=== PATIENT | female | born 1940 | race Two or more races ===

== ENCOUNTER 2018-04-03 21:22 | Emergency (ER) | payer MEDICAID, OTHER ==
[~2018-04-03] VITALS: Ht 152.4 cm; Wt 54.0 kg
--- NOTE | 2018-04-03 21:29 | ED.ADGEN ---
Past History Past Medical History: Anxiety, Cancer, Dementia, Depression, Hypertension, Other Past Surgical History: Cancer Surgery, Other Adult General Chief Complaint Chief Complaint (Note this is a repeat dictation of this report- computer malfunction) Nausea and vomiting one hour after eating spaghetti at 1300 hrs. [facility] HPI Patient is a 77 year old female who presents with above hx and complaints of intractable nausea and vomiting after eating spaghetti this afternoon. Other family members did not get sick. Patient did have a bowel movement yesterday. She is here in [place] currently visiting her daughter. She is from [place]. Patient has had multiple abdomen surgeries and chemotherapy for colon cancer completed proximally 7 years ago. No hx trauma, specific ill contracts. Recent travel to [place]. Patient localizes her pain in epigastric and right upper quadrant. No previous history of gallbladder disease. Review of Systems Review of Systems Constitutional: Denies fever or chills [] Eyes: Denies change in visual acuity, redness, or eye pain [] HENT: Denies nasal congestion or sore throat [] Respiratory: Denies cough or shortness of breath [] Cardiovascular: No additional information not addressed in HPI [] GI: Complaints of right upper quadrant and epigastric abdominal pain, nausea, vomiting, . Denies bloody stools or diarrhea [] : Denies dysuria or hematuria [] Musculoskeletal: Denies back pain or joint pain [] Integument: Denies rash or skin lesions [] Neurologic: Denies headache, focal weakness or sensory changes [] Endocrine: Denies polyuria or polydipsia [] All other systems were reviewed and found to be within normal limits, except as documented in this note. Family History Family History Noncontributory Current Medications Current Medications Current Medications Medications (Trade) Dose Ordered Sig/Saurabh Start Time Stop Time Status Last Admin Dose Admin Clonidine HCl (Catapres Tts-1) 1 patch WEEKLY 04/03/18 23:30 04/04/18 03:13 DC Clonidine HCl (Catapres) 0.1 mg 1X ONCE 04/03/18 23:30 04/03/18 23:31 DC 04/03/18 23:22 0.1 MG Diphenhydramine HCl (Benadryl) 25 mg 1X ONCE 04/03/18 22:30 04/03/18 22:31 DC 04/04/18 02:52 25 MG Famotidine (Pepcid Vial) 20 mg 1X ONCE 04/03/18 22:00 04/03/18 22:01 DC 04/03/18 22:19 20 MG Info (Do NOT chart on this entry -- for MONITORING) 1 each PRN DAILY PRN 04/03/18 23:15 04/04/18 03:13 DC Iohexol (Omnipaque 240 Mg/ml) 50 ml 1X ONCE 04/03/18 23:30 04/03/18 23:31 DC 04/04/18 00:23 50 ML Iohexol (Omnipaque 300 Mg/ml) 75 ml 1X ONCE 04/03/18 23:30 04/03/18 23:31 DC 04/04/18 00:22 75 ML Lactated Ringer's 1,000 ml @ 1,000 mls/hr 1X ONCE 04/04/18 00:30 04/04/18 01:29 DC 04/04/18 01:30 1,000 MLS/HR Levofloxacin/ Dextrose 100 ml @ 100 mls/hr 1X ONCE 04/04/18 01:45 04/04/18 02:44 DC 04/04/18 01:38 100 MLS/HR Lorazepam (Ativan) 1 mg 1X ONCE 04/03/18 22:30 04/03/18 22:31 DC 04/03/18 22:20 1 MG Morphine Sulfate (Morphine 10mg Syringe) 5 mg 1X ONCE 04/03/18 22:00 04/03/18 22:01 DC Ondansetron HCl (Zofran) 8 mg 1X ONCE 04/03/18 22:30 04/03/18 22:31 DC 04/03/18 23:20 8 MG See nursing for home meds. Allergies Allergies Allergies Coded Allergies Type Severity Reaction Last Updated Verified Penicillins Allergy Unknown Unknown 04/03/18 Yes ibuprofen Adverse Reaction Unknown Unknown 04/03/18 Yes Physical Exam Physical Exam Constitutional: in acute distress, ill in appearance. [] HENT: Normocephalic, atraumatic, bilateral external ears normal, oropharynx dry , no oral exudates, nose normal. [] Eyes: PERRLA, EOMI, conjunctiva normal, no discharge. [] Neck: Normal range of motion, no tenderness, supple, no stridor. [] Cardiovascular: Tachycardia Heart rate regular rhythm, no murmur [] Lungs & Thorax: Bilateral breath sounds clear to auscultation [] Abdomen: Bowel sounds decreased, soft, epigastric and Rt. upper quadrant tenderness, no masses, no pulsatile masses. Rebounds to Rt upper quadrant. Skin: Warm, diaphoretic, no erythema, no rash. [] Back: No tenderness, no CVA tenderness. [] Extremities: No tenderness, no cyanosis, no clubbing, ROM intact, no edema. [] No psoas sign. Neurologic: Alert and oriented X 3, No gross motor or sensory defects, no focal deficits noted. []Tremor Psychologic: Affect very anxious judgement normal, mood normal. [] Current Patient Data Vital Signs Vital Signs Date Time Temp Pulse Resp B/P (MAP) Pulse Ox O2 Delivery O2 Flow Rate FiO2 04/04/18 01:25 106 20 149/75 (99) 98 Room Air 04/03/18 22:54 98.5 Lab Results Laboratory Tests Test 04/03/18 01:29 04/03/18 22:47 Urine Collection Type Void Urine Color Yellow Urine Clarity Hazy Urine pH 8.5 Urine Specific [place] 1.015 Urine Protein 30 mg/dl (NEG-TRACE) Urine Glucose (UA) Neg mg/dL (NEG) Urine Ketones (Stick) Neg mg/dL (NEG) Urine Blood Small (NEG) Urine Nitrite Neg (NEG) Urine Bilirubin Neg (NEG) Urine Urobilinogen Dipstick 0.2 mg/dL (0.2 mg/dL) Urine Leukocyte Esterase Neg (NEG) Urine RBC 6-10 /HPF (0-2) Urine WBC 1-4 /HPF (0-4) Urine Squamous Epithelial Cells Occ /LPF Urine Bacteria Few /HPF (0-FEW) Urine Opiates Screen Neg (NEG) Urine Methadone Screen Neg (NEG) Urine Barbiturates Neg (NEG) Urine Phencyclidine Screen Neg (NEG) Urine Amphetamine/Methamphetamine Neg (NEG) Urine Benzodiazepines Screen Neg (NEG) Urine Cocaine Screen Neg (NEG) Urine Cannabinoids Screen Neg (NEG) Urine Ethyl Alcohol Neg (NEG) White Blood Count 8.3 x10^3/uL (4.0-11.0) Red Blood Count 4.35 x10^6/uL (3.50-5.40) Hemoglobin 14.0 g/dL (12.0-15.5) Hematocrit 41.2 % (36.0-47.0) Mean Corpuscular Volume 95 fL (79-100) Mean Corpuscular Hemoglobin 32 pg (25-35) Mean Corpuscular Hemoglobin Concent 34 g/dL (31-37) Red Cell Distribution Width 12.9 % (11.5-14.5) Platelet Count 334 x10^3/uL (140-400) Neutrophils (%) (Auto) 89 % (31-73) H Lymphocytes (%) (Auto) 8 % (24-48) L Monocytes (%) (Auto) 3 % (0-9) Eosinophils (%) (Auto) 0 % (0-3) Basophils (%) (Auto) 0 % (0-3) Neutrophils # (Auto) 7.4 x10^3uL (1.8-7.7) Lymphocytes # (Auto) 0.7 x10^3/uL (1.0-4.8) L Monocytes # (Auto) 0.2 x10^3/uL (0.0-1.1) Eosinophils # (Auto) 0.0 x10^3/uL (0.0-0.7) Basophils # (Auto) 0.0 x10^3/uL (0.0-0.2) Prothrombin Time 10.5 SEC (9.4-11.4) Prothrombin Time INR 1.0 (0.9-1.1) PTT 24 SEC (23-33) Sodium Level 134 mmol/L (136-145) L Potassium Level 3.9 mmol/L (3.5-5.1) Chloride Level 98 mmol/L (98-107) Carbon Dioxide Level 29 mmol/L (21-32) Anion Gap 7 (6-14) Blood Urea Nitrogen 25 mg/dL (7-20) H Creatinine 1.2 mg/dL (0.6-1.0) H Estimated GFR (Cockcroft-Gault) 43.4 Glucose Level 142 mg/dL (70-99) H Calcium Level 9.6 mg/dL (8.5-10.1) Total Bilirubin 0.3 mg/dL (0.2-1.0) Direct Bilirubin 0.1 mg/dL (0.0-0.2) Aspartate Amino Transferase (AST) 25 U/L (15-37) Alanine Aminotransferase (ALT) 23 U/L (14-59) Alkaline Phosphatase 71 U/L (46-116) Creatine Kinase 82 U/L (26-192) Creatine Kinase MB (Mass) 0.8 ng/mL (0.0-3.6) Creatine Kinase MB Relative Index 1.0 % (0-4) Troponin I Quantitative < 0.017 ng/mL (0-0.055) Total Protein 8.0 g/dL (6.4-8.2) Albumin 4.1 g/dL (3.4-5.0) Amylase Level 120 U/L (25-115) H Lipase 137 U/L (73-393) EKG EKG My interpretation of EKG shows a sinus rhythm at 90 bpm. This was nonspecific anterior septal changes.[] Radiology/Procedures Radiology/Procedures My interpretation of Acute Abd. pain shows Chronic lung changes. DJD , Spinal DJD and compression, Scattered isolated loops, possible early ileus. []CT of abdomen shows mild dilation of pancreatic duct as well as bile duct.- Shows previous surgery from colon section removal. No free air. - Suspect common duct obstruction. See formal report when available. Course & Med Decision Making Course & Med Decision Making Pertinent Labs and Imaging studies reviewed. (See chart for details) Plan transfer to [facility]- for GI consult- possible common duct obstruction. Accepting Dr. Ferris [] Final Impression Final Impression 1. Nausea, vomiting, abdomen pain 2. Accelerated HTN 3. Hyponatremia 134 4. Elevated Creat.and BUN 1.2/25 5. DM- 142 6. Elevated Amylase 7. Dehydration 8. Suspect obstruction of Common Duct- Dilated Bile and Pancreatic ducts 9. Hx of Colon Ca. ( Resection and Chemo Tx - 7 yrs) 10 Hx. of Dementia Dragon Disclaimer Dragon Disclaimer This electronic medical record was generated, in whole or in part, using a voice recognition dictation system. MATTY PEREZ MD Apr 03, 2018 21:29
[2018-04-03] MEDS ORDERED: IV RINGERS SOLUTION,LACTATED 1,000 ML IV SCH (22:00)
[2018-04-03] MEDS ORDERED: FAMOTIDINE 20 MG/2 ML VIAL IVP ONE (22:00)
[2018-04-03] MEDS ORDERED: MORPHINE SULFATE 10 MG/ML SYRINGE. SQ ONE (22:00)
[2018-04-03] MEDS ORDERED: ONDANSETRON PF 4 MG/2 ML VIAL. IV ONE ×2 (22:00→22:30)
--- NOTE | 2018-04-03 22:22 | EKG ---
[address] [address] Test Date: 2018-04-03 Test Time: 21:56:37 Pat Name: JORGE CHICAS Department: Room: Gender: F [employer]: MARK : 1940 Requested By: MATTY PEREZ Order Number: [id number] Reading MD: Milad Russo MD Measurements Intervals [place] Rate: 90 P: 76 VA: 186 QRS: 54 QRSD: 80 T: 46 QT: 356 QTc: 440 Interpretive Statements SINUS RHYTHM Electronically Signed On 04-05-2018 9:32:22 CDT by Milad Russo MD
[2018-04-03] MEDS ORDERED: diphenhydrAMINE 50 MG/ML VIAL IVP ONE (22:30)
[2018-04-03] MEDS ORDERED: LORazepam 2 MG/ML VIAL IV ONE (22:30)
[2018-04-03 23:09] LABS: BASO % 0 % (0-3); EOS % 0 % (0-3); HEMATOCRIT 41.2 % (36.0-47.0); LYMPH # 0.7 x10^3/uL (1.0-4.8); LYMPH % 8 % (24-48); MEAN CORPUSCULAR HEMOGLOBIN 32 pg (25-35); MEAN CORPUSCULAR HGB CONC 34 g/dL (31-37); MEAN CORPUSCULAR VOLUME 95 fL (79-100); MONO # 0.2 x10^3/uL (0.0-1.1); MONO % 3 % (0-9); NEUT # 7.4 x10^3uL (1.8-7.7); NEUT % 89 % (31-73); PLATELET COUNT 334 x10^3/uL (140-400); RED BLOOD COUNT 4.35 x10^6/uL (3.50-5.40); RED CELL DISTRIBUTION WIDTH 12.9 % (11.5-14.5); WHITE BLOOD COUNT 8.3 x10^3/uL (4.0-11.0)
[2018-04-03] MEDS ORDERED: CONTRAST GIVEN MC PRN (23:15)
--- NOTE | 2018-04-03 23:15 | RAD ---
ACUTE ABDOMEN SERIES History: Pain, nausea and vomiting Comparison: None. Findings: Single view of the chest, 2 upright views of the abdomen, single AP supine view of the abdomen are submitted. Pericardial cardiac silhouette is within normal limits. There is atherosclerotic calcification near aortic arch. There is no lobar consolidation, pleural fluid, pneumothorax. No free air is identified. There is an overall nonobstructive bowel gas pattern. There is multilevel degenerative disc disease of the lumbar spine. Impression: 1. There is an overall nonobstructive bowel gas pattern. There is no significant lung infiltrate. Electronically signed by: Greyson Elizalde MD (04/03/2018 11:12 PM) [facility]
[2018-04-03 23:30] LABS: ALBUMIN 4.1 g/dL (3.4-5.0); CALCIUM 9.6 mg/dL (8.5-10.1); CREATININE 1.2 mg/dL (0.6-1.0); DIRECT BILIRUBIN 0.1 mg/dL (0.0-0.2); GFR 43.4; POTASSIUM 3.9 mmol/L (3.5-5.1); TOTAL BILIRUBIN 0.3 mg/dL (0.2-1.0)
[2018-04-03] MEDS ORDERED: cloNIDine HCL 0.1 MG TABLET PO ONE (23:30)
[2018-04-03] MEDS ORDERED: IOHEXOL 300 MG/ML 75 ML VIAL. IV ONE (23:30)
[2018-04-03] MEDS ORDERED: cloNIDine TTS-1 1 PATCH PATCH TD SCH (23:30)
[2018-04-03] MEDS ORDERED: IOHEXOL 240 MG/ML 50ML VIAL. PO ONE (23:30)
[2018-04-03] MEDS ORDERED: ACET500T68 PO (23:41)
[2018-04-03] MEDS ORDERED: AMIT75TA PO (23:41)
[2018-04-03] MEDS ORDERED: LISI10TA2 PO (23:41)
[2018-04-03] MEDS ORDERED: MEMORY TOP (23:44)
[2018-04-03] MEDS ORDERED: lidoderm patch TOP (23:44)
[2018-04-04] MEDS ORDERED: IV RINGERS SOLUTION,LACTATED 1,000 ML IV ONE (00:30)
--- NOTE | 2018-04-04 01:14 | RAD ---
CT abdomen and pelvis with contrast HISTORY: Abdominal pain, nausea and vomiting. History of colon cancer status post surgical resection and chemotherapy. TECHNIQUE: Helical CT imaging of the abdomen and pelvis with oral contrast and 300 mL Omnipaque 300 intravenous contrast. Abdomen findings: Lumbar scoliosis and changes of disc disease with spinal canal and neural foraminal stenoses. Small fatty posterior right diaphragmatic hernia the right lung base. Small sliding hilum hernia gastroesophageal junction. There is mild intrahepatic and extrahepatic bile duct dilation with no obvious mass. The proximal common bile duct diameter proximally is 10 mm. Pancreatic duct also mildly prominent approximate diameter at the head measuring 3 mm upper limits of normal. Liver, gallbladder, spleen, pancreas, adrenals, kidneys unremarkable. 1 cm accessory spleen. Sigmoid diverticulosis. Partial right colectomy with enterocolic anastomosis. No obstructive or inflammatory changes in GI tract. Extensive calcified plaque of the aorta and abdominal arteries. No abdominal fluid or adenopathy. Lung bases unremarkable. Pelvis findings: Uterus, ovaries, bladder, rectum and bones are unremarkable. No pelvic fluid or adenopathy. IMPRESSION: 1. There is mild dilation of the bile ducts. This could be indicative of a small obstructing stone or stricture or a small periampullary obstructing mass. No obvious mass at the pancreas or duodenum evident on this exam. 2. Pancreatic duct borderline dilated. 3. Partial right colectomy with enterocolic anastomosis. No mass of the resection site. No bowel obstruction or inflammatory change. 4. Sigmoid colon diverticulosis. Exposure: One or more of the following individualized dose reduction techniques were utilized for this examination: 1. Automated exposure control 2. Adjustment of the mA and/or kV according to patient size 3. Use of iterative reconstruction technique Electronically signed by: Yvon Short MD (04/04/2018 1:11 AM) [facility]
[2018-04-04 01:25] VITALS: BP 149/75
[2018-04-04 03:01] LABS: BARBITURATES NEG (NEG); BENZODIAZEPINES NEG (NEG); BILIRUBIN,URINE NEG (NEG); CANNABINOIDS NEG (NEG); CLARITY,URINE HAZY; COCAINE NEG (NEG); COLOR,URINE YELLOW; GLUCOSE,URINE NEG (NEG); METHADONE NEG (NEG); OPIATES NEG (NEG); PHENCYCLIDINE NEG (NEG)
[2018-04-04 03:02] LABS: BACTERIA,URINE FEW /HPF (0-FEW); NITRITE,URINE NEG (NEG); SQUAMOUS EPITHELIAL CELL,UR OCC /LPF; UROBILINOGEN,URINE 0.2 mg/dL (0.2 mg/dL)
[2018-04-04 03:03] LABS: AMPHETAMINE/METHAMPHETAMINE NEG (NEG)
== END 2018-04-04 02:58 | disposition short-term general hospital (02) ==
LOC: ER 21:22
DX: E86.0 Dehydration (principal); R10.11 Right upper quadrant pain; R10.13 Epigastric pain; I10 Essential (primary) hypertension; E87.1 Hypo-osmolality and hyponatremia; E11.9 Type 2 diabetes mellitus without complications; F03.90 Unspecified dementia, unspecified severity, without behavioral disturbance, psychotic disturbance, mood disturbance, and anxiety; F41.9 Anxiety disorder, unspecified; R79.89 Other specified abnormal findings of blood chemistry; R74.8 Abnormal levels of other serum enzymes; Z88.0 Allergy status to penicillin; Z88.6 Allergy status to analgesic agent
CPT/HCPCS: 36415; 74022; 74177; 80048; 80076; 80307; 81001; 82150; 82553; 83690; 84484; 85025; 85610; 85730; 93005; 96361; 96365; 96375; 96376; 99285; J1200; J1956; J2060; J2405; J7120; Q9966; Q9967; S0028; G0479